=== PATIENT | male | born 1955 | race Caucasian/White ===

== ENCOUNTER → 2019-05-12 06:13 | Day surgery (SDC) | payer BC ==
[~2019-05-12 06:13] MED LIST: Acetaminophen IV 1GM/100ML * 100 ML ONE; Buffered Lidocaine 1% SYRIN* 1 ML/SYRINGE INTRADERM ONE; Bupivacaine 0.25% SDV PF* 10 ML VIAL INJ ONE; Bupivacaine 0.5% W/EPI SDV* 10 ML VIAL INJ ONE; Dexamethasone IV* 4 MG/ML 1 ML (4 MG) ONE; Dexamethasone TAB* 4 MG ONE; Dexamethasone TAB* 4 MG PO ONE; DiMENhydriNATE IV* 50 MG/ML VIAL IV PUSH PRN; Famotidine IV* 10 MG/ML 2 ML (20 mg) IV ONE; Famotidine IV* 10 MG/ML 2 ML (20 mg) ONE; HYDROmorphone INJ1* 1 MG/ML SYRINGE IV PRN; KETAMINE HCL* 50 MG/ML 10 ML VIAL ONE; Ketorolac INJ* 30 MG/ML 1 ML VIAL ONE; Lactated Ringers 1000 ML Bag* 1,000 ML IV SCH; Midazolam* 1 MG/ML 5 ML VIAL (5 MG) ONE; Naloxone* 0.4 MG/ML 1 ML VIAL IV PRN; Ondansetron ODT TAB* 4 MG ONE; Ondansetron ODT TAB* 4 MG PO ONE; PROCHLORPERAZINE INJ 5 MG/ML 2 ML VIAL IV PRN; PROCHLORPERAZINE INJ 5 MG/ML 2 ML VIAL ONE; Propofol* 10 MG/ML 20 ML BTL ONE; Rocuronium* 10 MG/ML VIAL ONE; ceFAZolin 2 GM in NS PREMIX(*) 2 GM/100 ML BAG IVPB ONE; fentaNYL* 50 MCG/ML 2 ML VIAL (100 MCG VIAL) IV PRN; fentaNYL* 50 MCG/ML 2 ML VIAL (100 MCG VIAL) ONE; oxyCODONE TAB* 5 MG TAB PO PRN
--- NOTE | 2019-05-12 10:42 | BRIEFOPN ---
Brief Operative/Procedure Note - Operation Details Pre-Op Diagnosis: Left inguinal hernia Post-Op Diagnosis: same Procedures: laparoscopic repair left inguinal hernia w/ mesh Surgeon(s)/Proceduralists: Odell. Assist: AUGIE Charles Anesthesia: GET Estimated Blood Loss: none Findings: as above Specimen(s)/Culture(s) Description: none Complications: none
[2019-05-12 11:18] VITALS: BP 149/99
--- NOTE | 2019-05-12 16:55 | OP ---
DATE OF OPERATION: 05/12/19 - [facility] DATE OF : 53 SURGEON: Remy Bain MD LITERACY TEACHER: AUGIE Mitchell ANESTHESIOLOGIST: Dr. Pineda. ANESTHESIA: General with local. PRE-OP DIAGNOSIS: Left inguinal hernia. POST-OP DIAGNOSIS: Left indirect inguinal hernia. OPERATIVE PROCEDURE: Laparoscopic totally extraperitoneal repair of left indirect inguinal hernia with mesh. ESTIMATED BLOOD LOSS: Minimal. WOUND CLASSIFICATION: 1. COMPLICATIONS: None. DRAINS: None. SPECIMENS: None. FINDINGS: Small left indirect inguinal hernia. DESCRIPTION OF PROCEDURE: Written informed consent was obtained, the left groin was marked with indelible ink, and preoperative antibiotics were administered. The patient was taken to the operating room and placed in the supine position. Sequential compression devices and warming blanket were applied. General anesthesia was administered. The abdomen and both groins were prepped and draped in the usual sterile fashion. Time-out verification was completed. Initially, a small transverse incision was made just to the left of midline below the umbilicus and the anterior rectus sheath fascia on the left was divided and the left rectus muscle was identified and retracted laterally to expose the posterior sheath. The space was developed with a Cecelia clamp easily and subsequently the Spacemaker balloon inflator was passed through this space down to the pubic tubercle without difficulty. The balloon was then inflated with about 8 to 10 squeezes of the hand pump under direct vision of the camera to develop the extraperitoneal space. This was done without difficulty. The balloon was then removed and a 12-mm blunt port was inserted in the extraperitoneal space and this was insufflated to 12 mmHg. The patient was placed in Trendelenburg position. Under direction vision, two 5-mm ports were placed in the midline inferior to the initial port site placement. Dissection was commenced medially to identify the pubic tubercle and the Ramiro' s ligament on the left was done without difficulty. The epigastric vessels were identified in their usual position running anteriorly onto the anterior abdominal wall. There did not appear to be evidence of a direct space hernia. Laterally, there was some fatty adventitial tissue, which was bluntly dissected to expose the lateral anterior wall, the iliopubic tract laterally to the iliac crest. Working medially, we were able to identify the peritoneal reflection following this in towards the internal ring. It appeared that there was a small indirect inguinal hernia and this sac was reduced. We were able to identify the spermatic cord and contents and we were able to identify the vas deferens and protect it from injury throughout. There was some peritoneum that was somewhat adherent to the more medial structures along the retroperitoneum and this was bluntly and sharply dissected back to assure myself that there was no evidence of a direct or a femoral hernia. Once this was complete and there was adequate exposure, a 10 cm x 15 cm self- gripping Covidien mesh was folded appropriately and placed into the extraperitoneal space and opened to cover both the direct and indirect spaces from the pubic tubercle and slightly to the right, lateral to the iliac crest with care taken to prevent any of the peritoneal reflection from migrating underneath the mesh. This mesh sat nicely without wrinkling. Hemostasis was assured. The extraperitoneal space was desufflated under direct vision holding the mesh in position with several graspers. The anterior rectus fascia of the umbilical incision was closed with several interrupted 0 Vicryl sutures. The skin at all three incisions was closed with subcuticular 4-0 Vicryl suture and Steri-Strips were applied. The patient tolerated the procedure well and was taken to the recovery room in stable condition. [id number]/[facility] #: [id number]
== END | disposition home or self-care (01) ==
LOC: OR 06:13
PROVIDERS: ATTEND Surgery
DX: K40.90 Unilateral inguinal hernia, without obstruction or gangrene, not specified as recurrent (principal); E78.5 Hyperlipidemia, unspecified; N40.0 Benign prostatic hyperplasia without lower urinary tract symptoms; E78.00 Pure hypercholesterolemia, unspecified
CPT/HCPCS: A9270-GY; C1781; J0690; J0780; J1100; J1885; J2250; J2704; J3010; J3490; J8540